=== PATIENT | female | born 1985 | race Caucasian/White ===

== ENCOUNTER → 2023-08-29 | Outpatient (CLI) | payer OTHER ==
[2023-08-29 09:28] LABS: HEMATOCRIT 43.3 % (36.0-47.0); HEMOGLOBIN 14.6 g/dl (12.0-15.5); MEAN CORPUSCULAR HEMOGLOBIN 27.2 pg (27.0-33.0); MEAN CORPUSCULAR HGB CONC 33.7 g/dl (32.0-36.5); MEAN CORPUSCULAR VOLUME 80.6 fl (80.0-96.0); PLATELET COUNT, AUTOMATED 285 10^3/uL (150-450); RED BLOOD COUNT 5.37 10^6/uL (4.00-5.40); WHITE BLOOD COUNT 11.5 10^3/uL (4.0-10.0)
[2023-08-29 09:42] LABS: HEMOGLOBIN A1c 7.1 % (4.0-6.0)
[2023-08-29 09:43] LABS: ERYTHROCYTE SEDIMENTATION RATE 47 mm/hr (0-20)
[2023-08-29 09:53] LABS: ALBUMIN 3.4 G/DL (3.2-5.2); ALKALINE PHOSPHATASE 136 U/L (46-116); ALT/SGPT 25 U/L (7.0-40); AST/SGOT 23 U/L (<34); BILIRUBIN,TOTAL 0.3 MG/DL (0.3-1.2); BLOOD UREA NITROGEN 16 MG/DL (9-23); CARBON DIOXIDE LEVEL 29 MMOL/L (20-31); CHLORIDE LEVEL 101 MMOL/L (98-107); CHOLESTEROL LEVEL 189 MG/DL (<200); CHOLESTEROL RISK RATIO 4.97 (<5); CREATININE FOR GFR 0.52 MG/DL (0.55-1.30); GLOMERULAR FILTRATION RATE > 60.0 (>58); GLUCOSE, FASTING 140 MG/DL (60-100); IRON (FE) 40 UG/DL (50-170); LDL CHOLESTEROL 123.2 MG/DL (<100); MAGNESIUM LEVEL 1.9 MG/DL (1.8-2.4); PERCENT SATURATION 11.2 % (13.2-45.0); POTASSIUM SERUM 3.7 MMOL/L (3.5-5.1); RHEUMATOID FACTOR QUANT < 3.5 IU/ML (<14); SODIUM LEVEL 137 MMOL/L (136-145); TOTAL IRON BINDING CAPACITY 358 UG/DL (250-425); TOTAL PROTEIN 6.7 G/DL (5.7-8.2); TRIGLYCERIDES LEVEL 139 MG/DL (<150)
[2023-08-29 09:59] LABS: THYROID STIMULATING HORMONE 1.311 uIU/ML (0.55-4.78)
[2023-08-29 10:00] LABS: FOLATE > 24.0 NG/ML (>5.4); FREE T4 1.12 NG/DL (0.89-1.76); VITAMIN B12 LEVEL 604 PG/ML (211-911)
[2023-08-31 14:16] LABS: ANTINUCLEAR ANTIBODIES DIRECT Negative (Negative); VITAMIN D 1,25 DIHYDROXY 25.3 pg/mL (24.8-81.5)
== END ==
LOC: M RAD 08:14
PROVIDERS: ATTEND Physician Assistant
DX: R20.2 Paresthesia of skin (principal)

== ENCOUNTER → 2024-02-26 | Outpatient (CLI) | payer MEDICAID, OTHER ==
[2024-02-26 13:45] LABS: THYROID STIMULATING HORMONE 1.261 uIU/ML (0.55-4.78)
[2024-02-26 13:46] LABS: FREE T4 1.24 NG/DL (0.89-1.76)
[2024-02-26 13:47] LABS: THYROID PEROXIDASE ANTIBODY < 28.0 U/ML (<60.0)
== END ==
LOC: M LAB 12:09
PROVIDERS: ATTEND Nurse Practitioner Family
DX: E04.2 Nontoxic multinodular goiter (principal)

== ENCOUNTER → 2024-02-26 | Outpatient (CLI) | payer MEDICAID, OTHER ==
[2024-02-26 13:42] LABS: BLOOD UREA NITROGEN 13 MG/DL (9-23); CALCIUM LEVEL 9.5 MG/DL (8.5-10.1); CARBON DIOXIDE LEVEL 32 MMOL/L (20-31); CHLORIDE LEVEL 102 MMOL/L (98-107); CREATININE FOR GFR 0.56 MG/DL (0.55-1.30); GLOMERULAR FILTRATION RATE > 60.0 (>58); GLUCOSE, FASTING 78 MG/DL (60-100); MAGNESIUM LEVEL 1.9 MG/DL (1.8-2.4); POTASSIUM SERUM 3.4 MMOL/L (3.5-5.1); SODIUM LEVEL 139 MMOL/L (136-145)
== END ==
LOC: M LAB 12:05
PROVIDERS: ATTEND Physician Assistant
DX: Z00.00 Encounter for general adult medical examination without abnormal findings (principal)

== ENCOUNTER 2024-04-13 19:24 | Inpatient (IN) | payer MEDICAID, OTHER ==
[~2024-04-13] VITALS: Ht 165.1 cm; Wt 106.5 kg
[2024-04-13] MEDS: ONDANSETRON 4MG 2ML VIAL IV ONE ×2 (20:05→22:13)
[2024-04-13 20:11] LABS: BASO % 0.2 % (0.0-1.0); HEMATOCRIT 46.4 % (36.0-47.0); HEMOGLOBIN 15.7 g/dl (12.0-15.5); LYMPH # 1.2 10^3/uL (1.5-5.0); LYMPH % 6.4 % (24.0-44.0); MEAN CORPUSCULAR HEMOGLOBIN 26.7 pg (27.0-33.0); MEAN CORPUSCULAR HGB CONC 33.8 g/dl (32.0-36.5); MEAN CORPUSCULAR VOLUME 78.9 fl (80.0-96.0); MONO # 0.4 10^3/uL (0.0-0.8); MONO % 2.4 % (2.0-8.0); NEUTROPHILS # 16.5 10^3/uL (1.5-8.5); NEUTROPHILS % 90.6 % (36.0-66.0); PLATELET COUNT, AUTOMATED 368 10^3/uL (150-450); RED BLOOD COUNT 5.88 10^6/uL (4.00-5.40); WHITE BLOOD COUNT 18.2 10^3/uL (4.0-10.0)
[2024-04-13 20:38] LABS: LIPASE 28 U/L (12-53)
[2024-04-13 20:40] LABS: ALBUMIN 3.8 G/DL (3.2-5.2); ALKALINE PHOSPHATASE 119 U/L (46-116); ALT/SGPT 22 U/L (7.0-40); AST/SGOT 25 U/L (<34); BILIRUBIN,DIRECT 0.2 MG/DL (<0.4); BILIRUBIN,TOTAL 0.6 MG/DL (0.3-1.2); TOTAL PROTEIN 7.5 G/DL (5.7-8.2)
[2024-04-13 20:48] LABS: HCG, SERUM QUALITATIVE NEGATIVE (NEGATIVE)
[2024-04-13] MEDS: PIPERACILLIN/TAZOBACTAM SOD 3.375 GM in D5W MINI-BAG PLUS 50 ML IV ONE (21:20)
[2024-04-13] MEDS: MORPHINE 4 MG/ML 1ML VIAL IV ONE ×2 (21:20→23:34)
[2024-04-13 21:40] LABS: BLOOD UREA NITROGEN 15 MG/DL (9-23); CARBON DIOXIDE LEVEL 24 MMOL/L (20-31); CHLORIDE LEVEL 101 MMOL/L (98-107); CREATININE FOR GFR 0.52 MG/DL (0.55-1.30); GLOMERULAR FILTRATION RATE > 60.0 (>58); GLUCOSE, FASTING 181 MG/DL (60-100); POTASSIUM SERUM 3.3 MMOL/L (3.5-5.1); SODIUM LEVEL 136 MMOL/L (136-145)
[2024-04-13] MEDS ORDERED: ISOVUE-370 76% 100ML VIAL As Ordered ONE (21:47)
[2024-04-14] VITALS (12 sets, daily range): BP systolic 95–142; BP diastolic 54–86; TEMP 97–98.2; O2SAT 91–96
[2024-04-14] MEDS ORDERED: LIDOCAINE 2% 100MG/5ML SDV (FOR ANES.) As Ordered ONE (00:54)
[2024-04-14] MEDS ORDERED: SUGAMMADEX SODIUM 500 MG/5 ML VIAL (BRIDION) As Ordered ONE (00:54)
[2024-04-14] MEDS ORDERED: fentaNYL 100 MCG/2 ML INJECTION As Ordered ONE (00:54)
[2024-04-14] MEDS ORDERED: MIDAZOLAM INJ 2MG/2ML VIAL As Ordered ONE (00:54)
[2024-04-14] MEDS ORDERED: ROCURONIUM BROMIDE 50MG/5ML VIAL As Ordered ONE (00:54)
[2024-04-14] MEDS ORDERED: propofoL 200 MG/20 ML VIAL As Ordered ONE (00:54)
[2024-04-14] MEDS ORDERED: ACETAMINOPHEN 1000MG 100ML IV BAG As Ordered ONE (00:55)
[2024-04-14] MEDS ORDERED: KETOROLAC 60MG 2ML VIAL As Ordered ONE (00:55)
[2024-04-14] MEDS ORDERED: ONDANSETRON 4MG 2ML VIAL As Ordered ONE (00:55)
[2024-04-14] MEDS ORDERED: GLUCOSE 4 GM CHEW PO PRN (01:10)
[2024-04-14] MEDS ORDERED: DEXTROSE 50% 50ML SYRINGE IV PRN (01:10)
[2024-04-14] MEDS ORDERED: GLUCAGON INJ 1MG VIAL SC PRN (01:10)
[2024-04-14] MEDS ORDERED: NORCO, ANEXSIA 5/325MG TABLET (HYDROcodone/ACETAMINOPHEN) PO PRN (01:20)
[2024-04-14] MEDS ORDERED: fentaNYL 100 MCG/2 ML INJECTION IV PRN (01:55)
[2024-04-14] MEDS ORDERED: HYDROMORPHONE HCL 0.5 MG/ 0.5 ML SYRINGE IV PRN (01:55)
[2024-04-14] MEDS ORDERED: LR 1,000 ML IV SCH (01:55)
[2024-04-14] MEDS ORDERED: ONDANSETRON 4MG 2ML VIAL IV PRN ×2 (01:55→04:00)
[2024-04-14] MEDS ORDERED: oxyCODONE 5MG TAB PO PRN (01:55)
[2024-04-14] MEDS ORDERED: HYDROmorphone HCL 2MG/ML 1ML VIAL As Ordered ONE (01:58)
[2024-04-14] MEDS ORDERED: KETAMINE HCL 200MG/20ML VIAL As Ordered ONE (02:04)
[2024-04-14] MEDS ORDERED: METOPROLOL 5 MG/5 ML VIAL As Ordered ONE (02:33)
[2024-04-14] MEDS ORDERED: PIPERACILLIN/TAZOBACTAM SOD 3.375 GM in D5W MINI-BAG PLUS 50 ML IV SCH (03:00)
[2024-04-14] MEDS: NS 1,000 ML IV SCH (04:50)
[2024-04-14] MEDS: PIPERACILLIN/TAZOBACTAM SOD 3.375 GM in D5W MINI-BAG PLUS 50 ML IV SCH (05:18)
[2024-04-14] MEDS: MORPHINE 4 MG/ML 1ML VIAL IV PRN (05:24)
[2024-04-14] MEDS: INSULIN LISPRO (NovoLOG) PER UNIT SC SCH (06:00)
[2024-04-14] MEDS ORDERED: ACETAMINOPHEN 500 MG TAB PO SCH (06:00)
[2024-04-14] MEDS ORDERED: KETOROLAC 30 MG/ML 1ML VIAL IV SCH (08:00)
[2024-04-14] MEDS: SENOKOT S TAB PO SCH (08:45)
[2024-04-14] MEDS ORDERED: PROP40TA62 PO (09:23)
[2024-04-14] MEDS ORDERED: HYDR50TAB PO (09:23)
[2024-04-14] MEDS ORDERED: LAMO100T3 PO (09:23)
[2024-04-14] MEDS ORDERED: LEXA1TAB PO (09:23)
[2024-04-14] MEDS ORDERED: POTA-150 PO (09:23)
[2024-04-14] MEDS ORDERED: METH10CO PO (09:23)
[2024-04-14] MEDS ORDERED: METF500T13 PO (09:23)
[2024-04-14] MEDS ORDERED: LOSA100T46 PO (09:23)
[2024-04-14] MEDS ORDERED: ADDE20TA PO (09:23)
[2024-04-14] MEDS ORDERED: HOME MED LIST COMPLETE! XX SCH ×2 (09:25→11:00)
[2024-04-14] MEDS: METHADONE 5MG TAB PO SCH (11:34)
[2024-04-14] MEDS: METHADONE 10MG TAB PO SCH (11:34)
[2024-04-14] MEDS: NORCO, ANEXSIA 5/325MG TABLET (HYDROcodone/ACETAMINOPHEN) PO PRN (17:36)
[2024-04-14] MEDS: METOCLOPRAMIDE INJ 10MG/2ML VIAL IV ONE (19:47)
[2024-04-14] MEDS: ACETAMINOPHEN 325 MG TAB PO ONE (19:48)
[2024-04-15 02:05] VITALS: BP 102/68; TEMP 97.9; O2SAT 94
[2024-04-15] MEDS: KETOROLAC 30 MG/ML 1ML VIAL IV PRN (03:03)
[2024-04-15 04:44] VITALS: BP 100/60; TEMP 98.1; O2SAT 90
[2024-04-15] MEDS: lamoTRIgine 100MG TAB PO SCH (08:43)
[2024-04-15] MEDS: ESCITALOPRAM OXALATE 10 MG TAB (LEXAPRO) PO SCH (08:43)
[2024-04-15] MEDS: metFORMIN (GLUCOPHAGE) 500MG TAB PO SCH (08:44)
[2024-04-15] MEDS: POTASSIUM CHLORIDE 10MEQ SR TABLET PO SCH (08:44)
[2024-04-15 09:00] VITALS: BP 101/59
[2024-04-15] MEDS: LOSARTAN 50MG TABLET PO SCH (09:00)
[2024-04-15] MEDS: PROPRANOLOL 20 MG TAB PO SCH (09:00)
[2024-04-15] MEDS: PANTOPRAZOLE 40MG TAB (PROTONIX) PO SCH (11:05)
[2024-04-15] MEDS: CALCIUM CARBONATE 500 MG CHEW U/D PO PRN (11:07)
[2024-04-15 11:47] VITALS: BP 104/60; TEMP 97.5; O2SAT 97
[2024-04-15 11:54] LABS: HEMATOCRIT 37.4 % (36.0-47.0); HEMOGLOBIN 12.3 g/dl (12.0-15.5); MEAN CORPUSCULAR HEMOGLOBIN 27.3 pg (27.0-33.0); MEAN CORPUSCULAR HGB CONC 32.9 g/dl (32.0-36.5); MEAN CORPUSCULAR VOLUME 82.9 fl (80.0-96.0); PLATELET COUNT, AUTOMATED 295 10^3/uL (150-450); RED BLOOD COUNT 4.51 10^6/uL (4.00-5.40); WHITE BLOOD COUNT 9.4 10^3/uL (4.0-10.0)
[2024-04-15 12:15] LABS: ALBUMIN 2.9 G/DL (3.2-5.2); ALKALINE PHOSPHATASE 92 U/L (46-116); ALT/SGPT 14 U/L (7.0-40); AST/SGOT 14 U/L (<34); BILIRUBIN,TOTAL 0.5 MG/DL (0.3-1.2); BLOOD UREA NITROGEN 14 MG/DL (9-23); CALCIUM LEVEL 8.1 MG/DL (8.5-10.1); CARBON DIOXIDE LEVEL 28 MMOL/L (20-31); CHLORIDE LEVEL 105 MMOL/L (98-107); CREATININE FOR GFR 0.57 MG/DL (0.55-1.30); GLOMERULAR FILTRATION RATE > 60.0 (>58); GLUCOSE, FASTING 124 MG/DL (60-100); POTASSIUM SERUM 3.4 MMOL/L (3.5-5.1); SODIUM LEVEL 137 MMOL/L (136-145); TOTAL PROTEIN 6.1 G/DL (5.7-8.2)
[2024-04-15] MEDS: POTASSIUM CHLORIDE 10MEQ SR TABLET PO ONE (14:26)
== END 2024-04-15 15:35 | disposition home or self-care (01) | DRG 227 ==
LOC: EDBD 19:24 → M ED 19:24 → M ED INP 04-14 00:35 → M MS5PR 04-14 04:57
PROVIDERS: ADMIT Surgery; ATTEND Surgery
PROC: 8E0W4CZ Robotic Assisted Procedure of Trunk Region, Percutaneous Endoscopic Approach (ICD-10-PCS; 2024-04-14)
PROC: 0WQF4ZZ Repair Abdominal Wall, Percutaneous Endoscopic Approach (ICD-10-PCS; principal; 2024-04-14 01:00)
DX: K43.0 Incisional hernia with obstruction, without gangrene (principal); F11.20 Opioid dependence, uncomplicated; I10 Essential (primary) hypertension; E11.9 Type 2 diabetes mellitus without complications; Z79.899 Other long term (current) drug therapy; F32.A Depression, unspecified; K59.00 Constipation, unspecified; F41.9 Anxiety disorder, unspecified

== ENCOUNTER → 2024-05-30 | Outpatient (CLI) | payer OTHER ==
[~2024-05-30] MED LIST: ADDE20TA PO; HYDR50TAB PO; LAMO100T3 PO; LEXA1TAB PO; LOSA100T46 PO; METF500T13 PO; METH10CO PO; POTA-150 PO; PROP40TA62 PO
[2024-05-30 09:55] LABS: BASO % 0.5 % (0.0-1.0); EOS # 0.1 10^3/uL (0.0-0.5); EOS % 1.5 % (0.0-3.0); HEMATOCRIT 40.7 % (36.0-47.0); HEMOGLOBIN 13.7 g/dl (12.0-15.5); LYMPH # 2.1 10^3/uL (1.5-5.0); LYMPH % 24.3 % (24.0-44.0); MEAN CORPUSCULAR HEMOGLOBIN 26.9 pg (27.0-33.0); MEAN CORPUSCULAR HGB CONC 33.7 g/dl (32.0-36.5); MONO # 0.4 10^3/uL (0.0-0.8); NEUTROPHILS % 68.4 % (36.0-66.0); PLATELET COUNT, AUTOMATED 240 10^3/uL (150-450); RED BLOOD COUNT 5.09 10^6/uL (4.00-5.40); WHITE BLOOD COUNT 8.8 10^3/uL (4.0-10.0)
[2024-05-30 10:29] LABS: PERCENT SATURATION 21.1 % (13.2-45.0)
[2024-05-30 10:35] LABS: FREE THYROXINE INDEX 2.4 % (1.3-4.8); T UPTAKE 29.2 % (22.5-37.0); THYROID STIMULATING HORMONE 0.615 uIU/ML (0.55-4.78); THYROXINE (T4) 8.3 UG/DL (4.5-10.9)
[2024-06-02 13:09] LABS: FREE ANDROGEN INDEX 2.2 (0.4-8.4); SEX HORM BINDING GLOB 27.3 nmol/L (24.6-122.0); TESTOSTERONE 17 ng/dL (4-50)
== END ==
LOC: M LAB 09:00
PROVIDERS: ATTEND Nurse Practitioner Family
DX: L65.9 Nonscarring hair loss, unspecified (principal)

== ENCOUNTER → 2024-07-01 | Outpatient (CLI) | payer OTHER ==
[2024-07-01 08:13] LABS: APPEARANCE, URINE HAZY (CLEAR); BACTERIA, URINE AUTO NEGATIVE (NEGATIVE); BILIRUBIN, URINE AUTO NEGATIVE (NEGATIVE); BLOOD, URINE BLOOD 1+ (NEGATIVE); COLOR, URINE YELLOW (YELLOW); GLUCOSE, URINE (UA) AUTO NEGATIVE (NEGATIVE); KETONE, URINE AUTO NEGATIVE (NEGATIVE); LEUKOCYTE ESTERASE, URINE AUTO NEGATIVE (NEGATIVE); NITRITE, URINE AUTO NEGATIVE (NEGATIVE); PROTEIN, URINE AUTO 1+ mg/dL (NEGATIVE); RBC, URINE AUTO 1 /HPF (0-3); SPECIFIC GRAVITY URINE AUTO 1.023 (1.002-1.035); SQUAMOUS EPITHELIAL CELL UR AU 2 /HPF (0-6); UROBILINOGEN, URINE AUTO 0.2 mg/dL (0.0-2.0); WBC, URINE AUTO 1 /HPF (0-3)
[2024-07-01 08:14] LABS: BASO % 0.4 % (0.0-1.0); EOS # 0.1 10^3/uL (0.0-0.5); EOS % 1.4 % (0.0-3.0); HEMATOCRIT 37.3 % (36.0-47.0); HEMOGLOBIN 12.5 g/dl (12.0-15.5); LYMPH # 1.9 10^3/uL (1.5-5.0); LYMPH % 24.5 % (24.0-44.0); MEAN CORPUSCULAR HEMOGLOBIN 27.7 pg (27.0-33.0); MEAN CORPUSCULAR HGB CONC 33.5 g/dl (32.0-36.5); MEAN CORPUSCULAR VOLUME 82.7 fl (80.0-96.0); MONO # 0.4 10^3/uL (0.0-0.8); MONO % 5.1 % (2.0-8.0); NEUTROPHILS # 5.3 10^3/uL (1.5-8.5); NEUTROPHILS % 68.3 % (36.0-66.0); PLATELET COUNT, AUTOMATED 244 10^3/uL (150-450); RED BLOOD COUNT 4.51 10^6/uL (4.00-5.40); WHITE BLOOD COUNT 7.7 10^3/uL (4.0-10.0)
[2024-07-01 08:28] LABS: ERYTHROCYTE SEDIMENTATION RATE 31 mm/hr (0-20)
[2024-07-01 08:35] LABS: TOTAL PROTEIN,RANDOM URINE 23.1 MG/DL (0.0-14.0)
[2024-07-01 08:39] LABS: C REACTIVE PROTEIN QUANTITATIV 0.87 MG/DL (<1.0)
[2024-07-01 08:40] LABS: CREATININE,RANDOM URINE 105.1 MG/DL
[2024-07-01 08:41] LABS: ALBUMIN 3.2 G/DL (3.2-5.2); ALKALINE PHOSPHATASE 93 U/L (35-104); ALT/SGPT 15 U/L (7.0-40); AST/SGOT 17 U/L (<34); BILIRUBIN,TOTAL 0.3 MG/DL (0.3-1.2); BLOOD UREA NITROGEN 13 MG/DL (9-23); CARBON DIOXIDE LEVEL 29 MMOL/L (20-31); CHLORIDE LEVEL 102 MMOL/L (98-107); CREATININE FOR GFR 0.47 MG/DL (0.55-1.30); GLOMERULAR FILTRATION RATE > 60.0 (>58); GLUCOSE, FASTING 107 MG/DL (60-100); POTASSIUM SERUM 3.4 MMOL/L (3.5-5.1); SODIUM LEVEL 141 MMOL/L (136-145); TOTAL PROTEIN 6.2 G/DL (5.7-8.2)
== END ==
LOC: M LAB 07:13
PROVIDERS: ATTEND Registered Nurse Case Management
DX: Z51.81 Encounter for therapeutic drug level monitoring (principal); Z79.899 Other long term (current) drug therapy; R30.0 Dysuria

== ENCOUNTER → 2024-11-15 | Outpatient (CLI) | payer OTHER ==
[~2024-11-15] MED LIST changes: +E-Z-PAQUE 96% w/w SUSP 176GM BTL As Ordered ONE
== END ==
LOC: M RAD 07:55
PROVIDERS: ATTEND Surgery
DX: R11.2 Nausea with vomiting, unspecified (principal); K59.00 Constipation, unspecified

== ENCOUNTER → 2025-03-06 | Outpatient (CLI) | payer MEDICAID, OTHER ==
[~2025-03-06] MED LIST changes: -E-Z-PAQUE 96% w/w SUSP 176GM BTL As Ordered ONE
[2025-03-06 13:42] LABS: BASO # 0.0 10^3/uL (0.0-0.2); BASO % 0.4 % (0.0-1.0); EOS # 0.1 10^3/uL (0.0-0.5); EOS % 1.5 % (0.0-3.0); LYMPH # 2.5 10^3/uL (1.5-5.0); LYMPH % 30.1 % (24.0-44.0); MONO # 0.5 10^3/uL (0.0-0.8); MONO % 5.8 % (2.0-8.0); NEUTROPHILS # 5.1 10^3/uL (1.5-8.5); NEUTROPHILS % 61.6 % (36.0-66.0); PLATELET COUNT, AUTOMATED 245 10^3/uL (150-450)
[2025-03-06 13:54] LABS: ERYTHROCYTE SEDIMENTATION RATE 49 mm/hr (0-20)
[2025-03-06 14:12] LABS: C REACTIVE PROTEIN QUANTITATIV 2.11 MG/DL (<1.0); RHEUMATOID FACTOR QUANT 4.0 IU/ML (<14)
[2025-03-06 14:13] LABS: ALT/SGPT 18 U/L (7.0-40); AST/SGOT 27 U/L (<34); CALCIUM LEVEL 9.3 MG/DL (8.5-10.1); CARBON DIOXIDE LEVEL 33 MMOL/L (20-31); CHLORIDE LEVEL 98 MMOL/L (98-107); CHOLESTEROL LEVEL 197 MG/DL (<200); CHOLESTEROL RISK RATIO 4.11 (<5); CREATININE FOR GFR 0.46 MG/DL (0.55-1.30); FREE T4 1.13 NG/DL (0.89-1.76); GLOMERULAR FILTRATION RATE > 90.0 (>58); LDL CHOLESTEROL 99.3 MG/DL (<100); NON-HDL-C 149.1 MG/DL; POTASSIUM SERUM 3.4 MMOL/L (3.5-5.1); SODIUM LEVEL 141 MMOL/L (136-145); TRIGLYCERIDES LEVEL 249 MG/DL (<150)
[2025-03-06 14:16] LABS: ESTIMATED AVERAGE GLUCOSE 128.0 MG/DL (60-110)
== END ==
LOC: M LAB 12:39
DX: I10 Essential (primary) hypertension (principal); E04.9 Nontoxic goiter, unspecified; R21 Rash and other nonspecific skin eruption; E11.9 Type 2 diabetes mellitus without complications

== ENCOUNTER 2025-05-30 23:36 | Inpatient (IN) | payer MEDICAID, OTHER ==
[~2025-05-30] VITALS: Ht 165.1 cm; Wt 124.7 kg
[2025-05-31 00:14] LABS: BASO # 0.1 10^3/uL (0.0-0.2); BASO % 0.3 % (0.0-1.0); EOS # 0.1 10^3/uL (0.0-0.5); EOS % 0.4 % (0.0-3.0); LYMPH # 1.6 10^3/uL (1.5-5.0); LYMPH % 10.9 % (24.0-44.0); MONO # 0.6 10^3/uL (0.0-0.8); MONO % 3.9 % (2.0-8.0); NEUTROPHILS # 12.3 10^3/uL (1.5-8.5); NEUTROPHILS % 84.0 % (36.0-66.0); PLATELET COUNT, AUTOMATED 319 10^3/uL (150-450)
[2025-05-31] MEDS: FAMOTIDINE 20 MG/2 ML VIAL IVP ONE (00:21)
[2025-05-31 00:34] LABS: ALT/SGPT 21 U/L (7.0-40); AST/SGOT 36 U/L (<34); CALCIUM LEVEL 9.6 MG/DL (8.5-10.1); CARBON DIOXIDE LEVEL 27 MMOL/L (20-31); CHLORIDE LEVEL 95 MMOL/L (98-107); CREATININE FOR GFR 0.49 MG/DL (0.55-1.30); GLOMERULAR FILTRATION RATE > 90.0 (>58); POTASSIUM SERUM 3.1 MMOL/L (3.5-5.1); SODIUM LEVEL 137 MMOL/L (136-145)
[2025-05-31 00:35] LABS: CK-MB VALUE MASS 13.7 NG/ML (<3.6)
[2025-05-31] MEDS: ACETAMINOPHEN *IV* 1,000 MG in IV 1 EA IV ONE ×2 (00:35→14:16)
[2025-05-31] MEDS: MAG SULF 1GM/100ML (MAG RUN) 1 GM in IV 1 EA IV ONE ×2 (00:35→02:13)
[2025-05-31 00:36] LABS: CPK CREATINE PHOSPHOKINASE 383 U/L (34-145); MB/CK RELATIVE INDEX 3.57 (< OR =4)
[2025-05-31 00:50] LABS: MAGNESIUM LEVEL 1.6 MG/DL (1.8-2.4)
[2025-05-31 00:54] LABS: HCG, SERUM QUALITATIVE NEGATIVE (NEGATIVE)
[2025-05-31] MEDS ORDERED: ISOVUE-370 76% 100 ML VIAL As Ordered ONE (00:57)
[2025-05-31 00:58] LABS: INR 0.85
[2025-05-31] MEDS: KCL 40MEQ in NS 1000ML 1,000 ML IV SCH ×2 (02:13→05:35)
[2025-05-31] MEDS: NS (Normal Saline) 0.9% 1,000 ML IV ONE (03:02)
[2025-05-31 03:46] LABS: KETONE, URINE AUTO RFX TRACE mg/dL (NEGATIVE); LEUKOCYTE ESTERASE UR AUTO RFX NEGATIVE (NEGATIVE); MUCUS, URINE RFX SMALL (NEGATIVE); NITRITE, URINE AUTO RFX NEGATIVE (NEGATIVE); RBC, URINE AUTO RFX 19 /HPF (0-3); SQUAM EPITHELIAL CELL UR AURFX 2 /HPF (0-6); WBC, URINE AUTO RFX 6 /HPF (0-3)
[2025-05-31] MEDS: HYDROMORPHONE HCL 0.5 MG/0.5 ML SYRINGE IV ONE ×2 (04:22→05:27)
[2025-05-31] MEDS ORDERED: POTASSIUM CHLORIDE IV SCH (05:00)
[2025-05-31] MEDS ORDERED: HYDROMORPHONE HCL 0.5 MG/0.5 ML SYRINGE IV PRN ×3 (05:00→18:45)
[2025-05-31] MEDS ORDERED: NS 0.9% IV SCH (05:00)
[2025-05-31] MEDS ORDERED: HEPARIN SOD 5000 UNITS/ML 1 ML VIAL/SYRINGE SC SCH (05:10)
[2025-05-31] MEDS ORDERED: GLUCAGON INJ 1 MG VIAL SC PRN ×2 (05:30→18:45)
[2025-05-31] MEDS ORDERED: DEXTROSE 50% 50 ML SYRINGE IV PRN ×2 (05:30→18:45)
[2025-05-31] MEDS ORDERED: GLUCOSE 4 GM CHEW PO PRN ×2 (05:30→18:45)
[2025-05-31] MEDS: INSULIN LISPRO (NovoLOG) PER UNIT SC SCH (05:48)
[2025-05-31 06:50] LABS: PLATELET COUNT, AUTOMATED 284 10^3/uL (150-450)
[2025-05-31 07:27] LABS: CALCIUM LEVEL 8.3 MG/DL (8.5-10.1); CARBON DIOXIDE LEVEL 25 MMOL/L (20-31); CHLORIDE LEVEL 102 MMOL/L (98-107); CREATININE FOR GFR 0.44 MG/DL (0.55-1.30); GLOMERULAR FILTRATION RATE > 90.0 (>58); MAGNESIUM LEVEL 1.8 MG/DL (1.8-2.4); POTASSIUM SERUM 3.5 MMOL/L (3.5-5.1); SODIUM LEVEL 140 MMOL/L (136-145)
[2025-05-31] MEDS: HYDROMORPHONE HCL 0.5 MG/0.5 ML SYRINGE IV PRN (08:12)
[2025-05-31] MEDS: PANTOPRAZOLE 40MG VIAL IV SCH (08:12)
[2025-05-31] MEDS: HEPARIN SOD 5000 UNITS/ML 1 ML VIAL/SYRINGE SC SCH (08:13)
[2025-05-31] MEDS: LR 1,000 ML IV ONE (08:14)
[2025-05-31] MEDS: PIPERACILLIN/TAZOBACTAM SOD 3.375 GM in DEXTROSE 5% (D5W) ADV/MINI-BAG 50 ML IV SCH (08:23)
[2025-05-31 08:42] LABS: ALT/SGPT 17 U/L (7.0-40); AST/SGOT 29 U/L (<34)
[2025-05-31] MEDS ORDERED: PANTOPRAZOLE 40MG VIAL IV ONE (09:00)
[2025-05-31] MEDS: KCL 10MEQ/100ML SWI (KRUN) 10 MEQ in IV 1 EA IV SCH (09:56)
[2025-05-31] MEDS ORDERED: LEXA1TAB2 PO (10:13)
[2025-05-31] MEDS ORDERED: DOCU100C17 PO (10:13)
[2025-05-31] MEDS ORDERED: POTA-151 PO (10:13)
[2025-05-31] MEDS ORDERED: HOME MED LIST COMPLETE! XX SCH (10:20)
[2025-05-31] MEDS ORDERED: LIDOCAINE 2% 100 MG/5 ML SDV (FOR ANES.) As Ordered ONE (14:18)
[2025-05-31] MEDS ORDERED: ROCURONIUM BROMIDE 50MG/5ML VIAL As Ordered ONE (14:18)
[2025-05-31] MEDS ORDERED: dexAMETHasone 4 MG/ML 1 ML VIAL As Ordered ONE (14:19)
[2025-05-31] MEDS ORDERED: MIDAZOLAM INJ 2 MG/2 ML VIAL As Ordered ONE (14:19)
[2025-05-31] MEDS ORDERED: ONDANSETRON 4MG/2ML VIAL As Ordered ONE (14:19)
[2025-05-31] MEDS: LIDOCAINE 1% SDV 30 ML VIAL As Ordered ONE (15:36)
[2025-05-31] MEDS: ZOSYN 3.375GM VIAL As Ordered ONE (16:07)
[2025-05-31] MEDS ORDERED: ACETAMINOPHEN 1000MG/100ML IV BAG As Ordered ONE (16:27)
[2025-05-31] MEDS ORDERED: SUCCINYLCHOLINE 100MG/5ML SYRINGE As Ordered ONE (16:27)
[2025-05-31] MEDS ORDERED: SUGAMMADEX SODIUM 500 MG/5 ML VIAL As Ordered ONE (16:46)
[2025-05-31] MEDS ORDERED: PHENYLephrine 500MCG 5ML (100MCG/ML) SYRINGE As Ordered ONE (16:51)
[2025-05-31] MEDS ORDERED: HYDROmorphone HCL 2 MG/ML 1 ML VIAL As Ordered ONE (16:54)
[2025-05-31] MEDS ORDERED: INSULIN LISPRO (NovoLOG) PER UNIT As Ordered ONE (17:16)
[2025-05-31] MEDS ORDERED: KETOROLAC 30 MG/ML 1 ML VIAL As Ordered ONE (18:22)
[2025-05-31] MEDS ORDERED: LR 1,000 ML IV SCH (18:45)
[2025-05-31] MEDS ORDERED: INSULIN LISPRO (NovoLOG) PER UNIT SC PRN (18:45)
[2025-05-31] MEDS ORDERED: diphenhydrAMINE 50 MG/ML VIAL IV PRN (18:45)
[2025-05-31 19:56] VITALS: BP 127/63; TEMP 97.9; O2SAT 91
[2025-05-31 20:30] VITALS: BP 138/68; TEMP 97.6; O2SAT 93
[2025-05-31 20:48] LABS: CALCIUM LEVEL 7.8 MG/DL (8.5-10.1); CARBON DIOXIDE LEVEL 26 MMOL/L (20-31); CHLORIDE LEVEL 105 MMOL/L (98-107); CREATININE FOR GFR 0.56 MG/DL (0.55-1.30); GLOMERULAR FILTRATION RATE > 90.0 (>58); POTASSIUM SERUM 3.6 MMOL/L (3.5-5.1); SODIUM LEVEL 141 MMOL/L (136-145)
[2025-05-31 20:59] VITALS: BP 140/62; TEMP 97.6; O2SAT 91
[2025-05-31 21:28] VITALS: BP 142/68; TEMP 97.4; O2SAT 93
[2025-05-31 22:29] VITALS: BP 125/58; TEMP 97.6; O2SAT 93
[2025-05-31 23:25] VITALS: BP 135/62; TEMP 97.7; O2SAT 93
[2025-06-01] VITALS (8 sets, daily range): BP systolic 111–170; BP diastolic 55–78; TEMP 97.6–99.5; O2SAT 91–95
[2025-06-01] MEDS: HYDROMORPHONE HCL 0.5 MG/0.5 ML SYRINGE IV PRN (00:12)
[2025-06-01] MEDS: CALCIUM CARBONATE 500 MG CHEW U/D PO ONE (04:33)
[2025-06-01] MEDS: METHADONE 10 MG TAB PO SCH (04:33)
[2025-06-01] MEDS: ACETAMINOPHEN *IV* 1,000 MG in IV 1 EA IV ONE (05:28)
[2025-06-01 05:52] LABS: BASO # 0.0 10^3/uL (0.0-0.2); BASO % 0.3 % (0.0-1.0); EOS # 0.0 10^3/uL (0.0-0.5); EOS % 0.3 % (0.0-3.0); LYMPH # 1.3 10^3/uL (1.5-5.0); LYMPH % 19.1 % (24.0-44.0); MONO # 0.9 10^3/uL (0.0-0.8); MONO % 12.9 % (2.0-8.0); NEUTROPHILS # 4.4 10^3/uL (1.5-8.5); NEUTROPHILS % 66.9 % (36.0-66.0); PLATELET COUNT, AUTOMATED 284 10^3/uL (150-450)
[2025-06-01 06:19] LABS: CALCIUM LEVEL 7.5 MG/DL (8.5-10.1); CARBON DIOXIDE LEVEL 26 MMOL/L (20-31); CHLORIDE LEVEL 105 MMOL/L (98-107); CREATININE FOR GFR 0.56 MG/DL (0.55-1.30); GLOMERULAR FILTRATION RATE > 90.0 (>58); POTASSIUM SERUM 3.4 MMOL/L (3.5-5.1); SODIUM LEVEL 142 MMOL/L (136-145)
[2025-06-01] MEDS: KCL 10MEQ/100ML SWI (KRUN) 10 MEQ in IV 1 EA IV SCH (07:59)
[2025-06-01 08:16] LABS: MAGNESIUM LEVEL 1.8 MG/DL (1.8-2.4)
[2025-06-01] MEDS: MAG SULF 1GM/100ML (MAG RUN) 1 GM in IV 1 EA IV ONE (15:01)
[2025-06-01] MEDS: ACETAMINOPHEN *IV* 1,000 MG in IV 1 EA IV PRN (23:56)
[2025-06-02 03:40] VITALS: BP 138/72; TEMP 98.3; O2SAT 95
[2025-06-02 06:21] LABS: BASO # 0.0 10^3/uL (0.0-0.2); BASO % 0.4 % (0.0-1.0); EOS # 0.3 10^3/uL (0.0-0.5); EOS % 2.9 % (0.0-3.0); LYMPH # 2.0 10^3/uL (1.5-5.0); LYMPH % 22.3 % (24.0-44.0); MONO # 0.7 10^3/uL (0.0-0.8); MONO % 7.4 % (2.0-8.0); NEUTROPHILS # 6.0 10^3/uL (1.5-8.5); NEUTROPHILS % 65.6 % (36.0-66.0); PLATELET COUNT, AUTOMATED 262 10^3/uL (150-450)
[2025-06-02 06:34] LABS: ALT/SGPT 14 U/L (7.0-40); AST/SGOT 19 U/L (<34); CALCIUM LEVEL 7.9 MG/DL (8.5-10.1); CARBON DIOXIDE LEVEL 26 MMOL/L (20-31); CHLORIDE LEVEL 105 MMOL/L (98-107); CREATININE FOR GFR 0.53 MG/DL (0.55-1.30); GLOMERULAR FILTRATION RATE > 90.0 (>58); POTASSIUM SERUM 3.5 MMOL/L (3.5-5.1); SODIUM LEVEL 143 MMOL/L (136-145)
[2025-06-02 07:54] VITALS: BP 150/70; TEMP 98.1; O2SAT 96
[2025-06-02] MEDS: MIRALAX *UNIT DOSE* 17 GM PACKET PO SCH (08:52)
[2025-06-02] MEDS: KCL 10MEQ/100ML SWI (KRUN) 10 MEQ in IV 1 EA IV SCH (10:04)
[2025-06-02 12:00] VITALS: BP 128/68; TEMP 97.8; O2SAT 97
[2025-06-02] MEDS: KCL 10MEQ/100ML SWI (KRUN) 10 MEQ in IV 1 EA IV ONE (13:20)
[2025-06-02 15:40] VITALS: BP 138/63; TEMP 97.5; O2SAT 97
[2025-06-02 20:22] VITALS: BP 141/67; TEMP 97.3; O2SAT 96
[2025-06-02 23:37] VITALS: BP 135/65; TEMP 97.6; O2SAT 97
[2025-06-03 03:38] VITALS: BP 142/61; TEMP 97; O2SAT 100
[2025-06-03 06:09] LABS: BASO # 0.1 10^3/uL (0.0-0.2); BASO % 0.6 % (0.0-1.0); EOS # 0.2 10^3/uL (0.0-0.5); EOS % 2.5 % (0.0-3.0); LYMPH # 2.1 10^3/uL (1.5-5.0); LYMPH % 22.8 % (24.0-44.0); MONO # 0.5 10^3/uL (0.0-0.8); MONO % 5.8 % (2.0-8.0); NEUTROPHILS # 6.0 10^3/uL (1.5-8.5); NEUTROPHILS % 66.3 % (36.0-66.0); PLATELET COUNT, AUTOMATED 219 10^3/uL (150-450)
[2025-06-03 06:35] LABS: CALCIUM LEVEL 7.7 MG/DL (8.5-10.1); CARBON DIOXIDE LEVEL 26 MMOL/L (20-31); CHLORIDE LEVEL 104 MMOL/L (98-107); CREATININE FOR GFR 0.48 MG/DL (0.55-1.30); GLOMERULAR FILTRATION RATE > 90.0 (>58); POTASSIUM SERUM 3.6 MMOL/L (3.5-5.1); SODIUM LEVEL 140 MMOL/L (136-145)
[2025-06-03 07:28] VITALS: BP 145/68; TEMP 97.2; O2SAT 99
[2025-06-03] MEDS: POTASSIUM CHLORIDE 10MEQ SR TABLET PO ONE (10:24)
[2025-06-03 11:18] VITALS: BP 143/74; TEMP 97.3; O2SAT 96
[2025-06-03] MEDS: INSULIN LISPRO (NovoLOG) PER UNIT SC SCH (12:24)
[2025-06-03] MEDS ORDERED: INSULIN LISPRO (NovoLOG) PER UNIT SC SCH (21:00)
== END 2025-06-03 14:35 | disposition home or self-care (01) | DRG 227 ==
LOC: M ED 23:36 → M ED INP 05-31 05:07 → M PCU 05-31 19:46
PROVIDERS: ADMIT Internal Medicine; ATTEND Internal Medicine
PROC: 0DNU4ZZ Release Omentum, Percutaneous Endoscopic Approach (ICD-10-PCS; 2025-05-31)
PROC: 8E0W4CZ Robotic Assisted Procedure of Trunk Region, Percutaneous Endoscopic Approach (ICD-10-PCS; 2025-05-31)
PROC: 0WQF4ZZ Repair Abdominal Wall, Percutaneous Endoscopic Approach (ICD-10-PCS; principal; 2025-05-31 15:30)
DX: K43.6 Other and unspecified ventral hernia with obstruction, without gangrene (principal); Z68.42 Body mass index [BMI] 45.0-49.9, adult; I10 Essential (primary) hypertension; E66.01 Morbid (severe) obesity due to excess calories; E83.42 Hypomagnesemia; E11.9 Type 2 diabetes mellitus without complications; E87.6 Hypokalemia; Z79.891 Long term (current) use of opiate analgesic; F41.9 Anxiety disorder, unspecified; F32.A Depression, unspecified; Z79.899 Other long term (current) drug therapy; Z88.8 Allergy status to other drugs, medicaments and biological substances